=== PATIENT | male | born 1945 | race Caucasian/White ===

== ENCOUNTER → 2016-06-19 | Outpatient (CLI) | payer OTHER, MEDICARE ==
[~2016-06-19] MED LIST: AMLO-114 PO; ASPI81TA28 PO; ESCI10TA17 PO; KRIL1000 PO; MULT-506 PO; OLME40TA30 PO
== END | disposition home or self-care (01) ==
LOC: C.CPL 14:06
PROVIDERS: ATTEND Family Medicine
DX: R00.1 Bradycardia, unspecified (principal); I45.10 Unspecified right bundle-branch block; I44.4 Left anterior fascicular block

== ENCOUNTER → 2016-06-25 | Outpatient (CLI) | payer OTHER, MEDICARE | END | disposition home or self-care (01) | LOC: C.PATHSPEC 17:27 | PROVIDERS: ATTEND Plastic Surgery | DX: M75.92 Shoulder lesion, unspecified, left shoulder (principal) ==

== ENCOUNTER → 2016-07-08 | Day surgery (SDC) | payer OTHER, MEDICARE ==
[2016-06-30 10:25] VITALS: Ht 177.8 cm; Wt 97.7 kg
[~2016-07-08] VITALS: Ht 177.8 cm; Wt 97.7 kg
== END | disposition home or self-care (01) ==
LOC: EDSTATUS 09:30 → C.PAT 13:34
PROVIDERS: ATTEND Plastic Surgery
DX: C44.319 Basal cell carcinoma of skin of other parts of face (principal)

== ENCOUNTER → 2016-08-28 | Outpatient (CLI) | payer OTHER, MEDICARE ==
[2016-08-28 21:57] LABS: HEMATOCRIT 38.7 % (42-52); MEAN CELL VOLUME 87.8 fL (80-100); MEAN CORPUSCULAR HEMOGLOBIN 28.8 pg (25-34); MEAN CORPUSCULAR HGB CONC 32.8 g/dl (32-36); MEAN PLATELET VOLUME 10.6 fL (7.4-10.4); PLATELET COUNT 256 K/uL (130-400); RED BLOOD COUNT 4.41 M/uL (4.7-6.1); WHITE BLOOD COUNT 6.76 K/uL (4.8-10.8)
[2016-08-28 22:08] LABS: PARTIAL THROMBOPLASTIN RATIO 1.1; PROTHROMBIN TIME (PATIENT) 10.9 SECONDS (9.0-12.0)
--- NOTE | 2016-09-03 12:45 | CODING QUERY MEDICAL NECESSITY ---
CQSUPPORTING DIAGNOSIS NEEDED A supporting diagnosis is required for the test/procedure performed on this patient in order for us to be reimbursed by the patient's insurance. Please provide a supporting diagnosis for the following test/procedure listed below next to the test name along with your signature. *If there is no additional diagnosis for this patient that would support the following test/procedure please document that below next to the test/procedure. Test(s)/Procedure(s) that require a supporting diagnosis: DOS 08/28/16 BLOOD COUNT PROTHROMBIN TIME ORDERED BY DEZ JEAN Provider Signature: Date: Thank you Myranda Reese Health Information Management Once completed, please kindly fax back to [phone] For questions please call [phone]
== END | disposition home or self-care (01) ==
LOC: C.LAB 21:37
PROVIDERS: ATTEND Physician Assistant
DX: Z01.812 Encounter for preprocedural laboratory examination (principal); C44.310 Basal cell carcinoma of skin of unspecified parts of face

== ENCOUNTER → 2016-09-02 | Day surgery (SDC) | payer OTHER, MEDICARE ==
[2016-09-01 08:37] VITALS: Ht 177.8 cm; Wt 97.7 kg
[~2016-09-02] VITALS: Ht 177.8 cm; Wt 97.7 kg
[~2016-09-02] MED LIST changes: +ACETAMINOPHEN 325 MG TAB PO PRN; +ATROPINE SULFATE 0.1 MG/ML 5ML SYR IV PRN; +BACITRACIN OINT 15 GM TUBE ONE; +CEFAZOLIN 2000 MG/60 ML D5W IV SCH; +DEXAMETHASONE SOD INJ 4 MG/ML VIAL ONE; +EpHEDrine SULFATE INJ 50 MG/ML AMP IV PRN; +FENTANYL CITRATE INJ 50 MCG/1 ML 2 ML VIAL IV PRN; +FENTANYL CITRATE INJ 50 MCG/1 ML 2 ML VIAL ONE; +GENTIAN VIOLET TOP SOLN DROP CHARGE ONE; +LACTATED RINGER'S 1000ML 1,000 ML IV SCH; +LIDOCAINE HCL 2% 2 ML VIAL (20MG/ML) ONE; +LIDOCAINE/EPINEPHRINE 1% INJ 50 ML VIAL ONE; +METOCLOPRAMIDE HCL INJ 5 MG/ML 2 ML VIAL IV PRN; +MIDAZOLAM HCL 1 MG/ML 2ML VIAL ONE; +ONDANSETRON INJ 2 MG/ML 2 ML VIAL IV PRN; +ONDANSETRON INJ 2 MG/ML 2 ML VIAL ONE; +OXYCODONE/ACETAMINOPHEN 5-325 TAB PO PRN; +POVIDONE-IODINE OP SOLN 30 ML BTL ONE; +PROPOFOL IV EMULSION 10 MG/ML 20 ML VIAL IV ONE; +SODIUM CHLORIDE 0.9% 1000ML 1,000 ML IV SCH
--- NOTE | 2016-09-02 06:56 | History & Physical Bridge - [place] ---
H&P Re-Evaluation Bridge Note: I have examined the patient, reviewed the History & Physical and in the interval since the performance of the History & Physical I have noted the following changes of clinical significance: No changes noted
--- NOTE | 2016-09-02 08:15 | Discharge Instructions ---
Discharge Instructions Date of Service September 02, 2016. Admission Reason for Admission: Basal Cell Carcinoma Of Skin Of Face Discharge Discharge Diagnosis / Problem: Basal Cell Carcinoma of Face Discharge Goals Goal(s): Decrease discomfort Activity Recommendations Activity Limitations: per Instructions/Follow-up section ACTIVITY RECOMMENDATIONS: __Normal activities _x_No bending, lifting or straining __No driving __Driving allowed when you are off pain medications _x_Walking permitted __You should have help at home for ___ days DRESSINGS: __No dressings required _x_Keep dressings dry/in place until first office visit __Remove dressings ___ and leave dressings off __Apply ice ___ days __Remove dressings and reapply garment __Apply antibiotic ointment (Bacitracin, Neosporin, etc) to wounds 3-4 times/ day for 10 days BATHING: _x_Keep dressings dry _x_Sponge bathing permitted __Showering permitted _x_No swimming, hot tubs or soaking in a tub MEDICATIONS: Resume previous medications unless instructed otherwise by your surgeon. _x_Do not use aspirin, Motrin, Advil or Ibuprofen as these may promote bleeding. Please use Tylenol. _x_Prescription(s) provided:pain medication was provided at your last office visit OTHER INSTRUCTIONS: __Record drain output 2-3 times per day SPECIAL CARE INSTRUCTIONS: * It is normal to have a mild fever after surgery. If your temperature is higher than 101.5 degrees F, please call the office at [phone]. * Constipation is a typical side effect of pain medication. An over-the- counter stool softener will help relieve this. * Leaking around surgical drains may occur and should not cause concern. Sometimes these drains become clogged. If this happens, remove the bulb and milk the clot out of the tube, then replace the bulb. * Drainage from wounds after liposuction is normal and should be expected. Garments will become soiled. You should protect furniture and bedding. This drainage should mostly subside within 2-3 days. Leave garments in place unless instructed to remove them. * If you have unusual drainage from a wound or are concerned you have an infection or have any questions or concerns, please call the office at [phone]. FOLLOW UP VISIT: If not already scheduled, please call the office, , when you return home after surgery to schedule an appointment to be seen in __2_ days. . Current Hospital Diet Patient's current hospital diet: Discharge Diet Recommended Diet: Regular Diet Procedures Procedures Performed: Right Cheek Basal Cell Carcinoma Excision With Frozen Section And Flap Closure Pending Studies Studies pending at discharge: yes List of pending studies: pathology Medical Emergencies . Who to Call and When: Medical Emergencies: If at any time you feel your situation is an emergency, please call 911 immediately. . Non-Emergent Contact Non-Emergency issues call your: Primary Care Provider, Surgeon . "Provider Documentation" section prepared by Kristine Murray. . VTE Core Measure Inpt VTE Proph given/why not?: SCD's [place] Drug Monitoring Program Search Results: no issues identified
--- NOTE | 2016-09-02 08:26 | [facility] Post Operative Brief Note ---
Immediate Operative Summary Operative Date September 02, 2016. Pre-Operative Diagnosis Basal Cell Carcinoma Right Cheek Post-Operative Diagnosis Same Procedure(s) Performed Right Cheek Basal Cell Carcinoma Excision With Frozen Section And Flap Closure Surgeon Dr. Cowan Under Trimmer Surgeon(s) None Estimated Blood Loss 2 mL Findings no residual basal cell; foreign body giant cell reaction noted on frozen Specimens A. Basal Cell Carcinoma Right Cheek - Suture at 12 O'Clock; Sent for Frozen Section Anesthesia local with sedation Complication(s) None Disposition Recovery Room / PACU
[2016-09-02 08:31] VITALS: TEMP 36
[2016-09-02 09:00] VITALS: BP 160/87; PULSE 51; O2SAT 95
--- NOTE | 2016-09-02 09:11 | Anesthesia Progress Nt - [facility] ---
Anesthesia Post Op Note Date & Time September 02, 2016 at 09:11 Vital Signs Pain Intensity: 0 Vital Signs Past 12 Hours Date Time Temp Pulse Resp B/P Pulse Ox O2 Delivery O2 Flow Rate FiO2 09/02/16 09:00 51 16 160/87 95 Room Air 09/02/16 08:31 36.0 44 14 153/67 93 Room Air 09/02/16 06:29 36.5 52 18 180/74 95 Room Air Notes Mental Status: alert / awake / arousable, participated in evaluation Pt Amnestic to Procedure: Yes Nausea / Vomiting: adequately controlled Pain: adequately controlled Airway Patency, RR, SpO2: stable & adequate BP & HR: stable & adequate Hydration State: stable & adequate Anesthetic Complications: no major complications apparent
--- NOTE | 2016-09-04 12:47 | OPERATIVE REPORT ---
DATE OF OPERATION: 09/02/2016 PREOPERATIVE DIAGNOSIS: Right cheek basal cell carcinoma. POSTOPERATIVE DIAGNOSIS: Same. PROCEDURE: Excision basal cell carcinoma right cheek with V-Y advancement flap closure. SURGEON: Dr. Iman Cowan. ANESTHESIA: Local with sedation. COMPLICATIONS: None. 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 This was biopsy proven and there still noted to be some residual lesion. So, he presented to me for excision. Due to the location at the right lid cheek junction, I felt it would be most prudent to proceed with excision with frozen section. Unfortunately, I evaluated him in June and due to some cardiac concerns and further workup which was needed, he was unable to have the procedure performed until now. BRIEF DESCRIPTION OF THE PROCEDURE: Risks, benefits, and alternatives of the procedure were explained to the patient, who agreed and signed consent. He was identified and marked in the preoperative holding area. He was brought to the operating room, where he was positioned supine and placed under sedation without incident. Surgical site was prepped and draped sterilely. A time-out procedure was performed. The right cheek at the inferior most aspect of the eyelid had a healing shave biopsy site as well as a small nodule area adjacent. There was some peripheral erythema as well. The area was marked for excision and the maximal excision diameter including the lesion and periphery of normal appearing skin was 1.5 cm. A 1% lidocaine with epinephrine was used to anesthetize the area. A 15-blade scalpel was used to make the circular skin incision surrounding the lesion. The lesion was removed with some underlying subcutaneous fat. A suture marked at 12 o'clock and the lesion was sent for frozen section. Frozen section report showed no residual basal cell carcinoma; however, there was foreign body giant cell reaction present. Hemostasis was achieved with electrocautery. Due to the location, I had concerns about attempting primary closure due to risk of ectropion. Therefore, I performed a V-Y advancement flap from the lateral aspect of the cheek. This area was anesthetized with 1% lidocaine with epinephrine. With a 15 blade scalpel, I made the triangular incision. Undermining was performed until such time the flap could be able to be advanced into the defect. It was inset using 5-0 Vicryl interrupted sutures. Donor site was closed using 5-0 interrupted Vicryl dermal sutures. Skin was reapproximated using 6-0 Prolene interrupted skin sutures. At the closure of the case, there was no evidence for ectropion. Flap was pink and viable. Antibiotic ointment and a dressing were applied. The patient was awakened and transferred to recovery in satisfactory condition. This flap closure presented a surface area of less than 10 square cm. I attest to the content of the Intraoperative Record and any orders documented therein. Any exceptions are noted below. MTDD
== END | disposition home or self-care (01) ==
LOC: X.SURG 06:16
PROVIDERS: ATTEND Plastic Surgery
DX: C44.319 Basal cell carcinoma of skin of other parts of face (principal); I10 Essential (primary) hypertension; Z79.82 Long term (current) use of aspirin; Z82.49 Family history of ischemic heart disease and other diseases of the circulatory system

== ENCOUNTER 2024-05-07 11:48 | Inpatient (IN) ==
--- OUTSIDE RECORDS SUMMARY | 2024-05-07 11:55 | External Medical Summary | Continuity of Care Document ---
Author Name Unknown Organization [address] Address [address] [place] [id number] Care Team Providers Care Channel Lip Wetter Name Role Phone Mannie Ayala Primary Care Physician [phone] [id number] Date(s): 03/09/24 - 03/09/24 [facility] [address], [address] [place] [address] [phone] Encounter Diagnosis Bradycardia(Discharge Diagnosis) - 03/09/24 CAD in [place] artery(Discharge Diagnosis) - 03/09/24 RBBB with left anterior fascicular block(Discharge Diagnosis) - 03/09/24 Hyperlipidemia(Discharge Diagnosis) - 03/09/24 Benign essential HTN(Discharge Diagnosis) - 03/09/24 Essential (primary) hypertension(Final) - Bradycardia, unspecified(Final) - Atherosclerotic heart disease of [place] coronary artery without angina pectoris (Final) - Hyperlipidemia, unspecified(Final) - Bifascicular block(Final) - Discharge Disposition: Home or Self Care Attending Physician: DO Epps Jason D Allergies, Adverse Reactions, Alerts No Known Allergies Assessment and Plan Extracted from: Title:Cardiology Office Visit Note Author:DO Epps Jason D Date:03/09/24 1.Benign essential HTN 2.Bradycardia 3.CAD in [place] artery 4.Hyperlipidemia 5.RBBB with left anterior fascicular block From my standpoint he is doing really well. I think his fatigue in the afternoon is likely related to hypotension. We suggested moving his Procardia XL to at night and leaving his isosorbide and losartan to the morning. Hopefully this improves his symptoms. Will continue her cardiac rehab. They note that he can reset the clock for his 36 sessions as he started before his angioplasty and stenting. Regards to his LAD lesion he seems asymptomatic and therefore we will continue with medical therapy. If he noted progressive anginal symptoms that is not improving with medical therapy then we can revisit angioplasty and stenting of the LAD. He denies any falls or syncopal episodes. He does need a lipid profile and a complete metabolic profile. I would try to drive his LDL under 70 if not closer to 60. He is tolerating his current dose of atorvastatin without myalgias or arthralgias. Given his anxiety I doubled his Lexapro to 20 mg and noted I would document this in my note for you. Additionally I wonder if he might not benefit from some hydroxyzine as needed for his anxiety. I will see him back in 4 months. Sooner if there are any issues. Immunizations Given and Recorded Vaccine Date Status Refusal Reason influenza virus vaccine, inactivated 04/15/23 Give n influenza virus vaccine, inactivated 1 03/21/21 Gi eric influenza virus vaccine, inactivated 05/11/19 Give n influenza virus vaccine, inactivated 03/22/18 Give n SARS-CoV-2 mRNA (Pfizer 12+) bivalent 05/16/21 Rec orded SARS-CoV-2 (COVID-19) mRNA BNT-162b2 vax 2 05/16/21 Recorded SARS-CoV-2 (COVID-19) mRNA BNT-162b2 vax 3 06/27/20 Recorded SARS-CoV-2 (COVID-19) mRNA BNT-162b2 vax 4 06/06/20 Recorded pneumococcal 13-valent vaccine 03/09/17 Recorded pneumococcal 13-valent vaccine 5 02/13/16 Recorded pneumococcal 23-valent vaccine 02/07/16 Recorded 1Result Comment: Verified by Kevin Parra LPN 2Result Comment: doesn't recall this one 3Result Comment: 2021-06-18: Historical information-source unspecified 4Result Comment: 2021-06-18: Historical information-source unspecified 5Result Comment: 2019-05-11: Historical information-source unspecified Medications aspirin 81 mg oral capsule Start: 01/14/24 1:10:00 PM EDT, 1 cap, PO, q24h, Disp# 90 cap, Refills: 3, other Start Date: 01/14/24 Status: Ordered atorvastatin 20 mg oral tablet Start: 02/08/24 8:09:00 AM EDT, 1 tab, PO, qhs Start Date: 02/08/24 Status: Ordered escitalopram 20 mg oral tablet Start: 03/09/24 10:52:00 AM EST, 1 tab, PO, Daily, Disp# 90 tab, Refills: 3, Pharmacy: [facility] Start Date: 03/09/24 Status: Ordered Fish Oil 500 mg oral capsule Start: 03/28/19 1:16:00 PM EST, 1,250 mg =, PO, Daily Start Date: 03/28/19 Status: Ordered inhaler spacer Start: 07/04/22 4:30:00 PM EST, See Instructions, Disp# 1 each, Refills: 2, to be used with albuterolinhaler, Pharmacy: [facility] 20[facility] Start Date: 07/04/22 Status: Ordered isosorbide mononitrate 30 mg oral tablet, extended release Start: 12/14/23 10:19:00 AM EDT, 1 tab, PO, qAM Start Date: 12/14/23 Status: Ordered multivitamin Start: 06/27/22 1:17:00 PM EST, 1 tab, PO, Daily Start Date: 06/27/22 Status: Ordered NIFEdipine (Eqv-Adalat CC) 60 mg oral tablet, extended release Start: 12/28/23 9:25:00 AM EDT, 1 tab, PO, Daily, Disp# 90 tab, Refills: 3, Pharmacy: [facility] 20[facility] Start Date: 12/28/23 Status: Ordered nitroglycerin 0.4 mg sublingual tablet Start: 02/08/24 11:43:00 AM EDT, 1 tab, SL, q5min, Disp# 25 tab, Refills: 1, not to exceed 3 doses/15 min--if pain persists, seek medical attention must be dispensed & stored in original containers, PRN: as needed for chest pain, Pharmacy: [facility] [place] Start Date: 02/08/24 Status: Ordered olmesartan 40 mg oral tablet Start: 09/07/23 9:40:00 AM EDT, See Instructions, Disp# 90 tab, Refills: 3, TAKE 1 TABLET BY MOUTH EVERY DAY, Pharmacy: [facility] [address] Start Date: 09/07/23 Status: Ordered Plavix 75 mg oral tablet Start: 02/08/24 11:43:00 AM EDT, 1 tab, PO, Daily, Disp# 30 tab, Refills: 5, DO NOT STOP this unlessdirected by Cardiology, Pharmacy: [facility] [place] Start Date: 02/08/24 Status: Ordered PreserVision oral tablet Start: 08/13/18 2:57:00 PM EDT, 1 tab, PO, Daily Start Date: 08/13/18 Status: Ordered Vitamin D3 5000 intl units (125 mcg) oral tablet Start: 09/30/19 2:32:00 PM EDT, 1 tab, PO, Daily Start Date: 09/30/19 Status: Ordered Voltaren 1% topical gel Start: 12/09/19 12:11:00 PM EDT, 1 appl, topical, qid, Disp# 300 g, Refills: 3, PRN: Pain, Pharmacy: [id number] Start Date: 12/09/19 Status: Ordered Mental Status 03/09/24 Barriers to Learning one year None evide nt Mandatory Health Literacy Documentation Yes Health Literacy Communication Barriers N ever Primary Language Tajik Problem List Condition Confirmation Course Effective Dates Status H ealth Status Informant Thoracic aortic aneurysm Confirmed Active Benign essential HTN Confirmed Active CAD in [place] artery Confirmed Active Diverticulosis Confirmed Active Dizziness Confirmed Active Dyspnea Confirmed Active Fatigue Confirmed Active Status post ORIF of fracture of ankle Confirmed Active Bradycardia Confirmed Active Hyperlipidemia Confirmed Active Nephrolithiasis Confirmed Active COPD, mild Confirmed Active Mild depression Confirmed Active Osteoarthritis of right knee Confirmed Active RBBB with left anterior fascicular block Confirmed Active Sleep apnea Confirmed Active Diagnosis Diagnosis Type Effective Dates Health Status Clinical Service Informant CAD in [place] artery Discharge Diagnosis 03/09/24 RBBB with left anterior fascicular block Discharge Diagnosis 03/09/24 Benign essential HTN Discharge Diagnosis 03/09/24 Bradycardia Discharge Diagnosis 03/09/24 Hyperlipidemia Discharge Diagnosis 03/09/24 Procedures Procedure Date Related Diagnosis Body Site Status Colonoscopy 1 01/31/[address] of abdomen and pelvis 2 12/14/20 Completed Open reduction of fracture o f ankle with internal fixation 08/21/14 Completed Tonsillectomy Completed 1Impression: Diverticulosis in the sigmoid colon. Non-bleeding internal hemorrhoids. [facility] specimens [facility]: 1. Obstructing 1.8 left renal calculus with moderate severe hydronephrosis Results Laboratory List Name Date Comprehensive Metabolic Panel (COMP META B PANEL) 03/09/24 Lipid Profile (LIPOPROTEINS) 03/09/24 Most recent to oldest [Reference Range]: 1 eGFR CKD-EPI [>60 mL/min/1.73 m2] 90 mL/ min/1.73 m2 1 (03/09/24 11:07 AM) Non-HDL 89 mg/dL 2 (03/09/24 11:07 AM) Estimated CrCl 86.75 mL/min (03/09/24 11:41 AM) Anion Gap [5-14 mmol/L] 8 mmol/L (03/09/24 11:07 AM) Alb [3.5-5.0 g/dL] 3.9 g/dL (03/09/24 11:07 AM) Alk Phos [38-126 unit/L] 73 unit/L (03/09/24 11:07 AM) ALT [<50 unit/L] 28 unit/L (03/09/24 11:07 AM) AST [15-46 unit/L] 28 unit/L (03/09/24 11:07 AM) BUN [7-20 mg/dL] 17 mg/dL (03/09/24 11:07 AM) Ca [8.4-10.2 mg/dL] 8.8 mg/dL (03/09/24 11:07 AM) Chol/HDL 3 (03/09/24 11:07 AM) Chol [125-200 mg/dL] 133 mg/dL (03/09/24 11:07 AM) Cl- [96-107 mmol/L] 104 mmol/L (03/09/24 11:07 AM) HCO3 [22-30 mmol/L] 28 mmol/L (03/09/24 11:07 AM) Cret [0.70-1.30 mg/dL] 0.83 mg/dL (03/09/24:07 AM) Glu [74-106 mg/dL] 90 mg/dL (03/09/24 11:07 AM) HDL [>35 mg/dL] 44 mg/dL (03/09/24 11:07 AM) K [3.5-5.1 mmol/L] 4.1 mmol/L (03/09/24 11:07 AM) LDL Chol, Calculated [50-130 mg/dL] 70 m g/dL (03/09/24 11:07 AM) Na [137-145 mmol/L] 140 mmol/L (03/09/24 11:07 AM) T Bili [0.2-1.3 mg/dL] 0.5 mg/dL (03/09/24 11:07 AM) Prot [6.3-8.2 g/dL] 7.0 g/dL (03/09/24 11:07 AM) TG [<200 mg/dL] 93 mg/dL (03/09/24 11:07 AM) 1Result Comment: Testing Performed By: Dept of Pathology [facility] Arely Bradshaw, [address] [place] [address] 2Result Comment: Testing Performed By: Dept of Pathology [facility] Arely Bradshaw, [address] [place] [address] Vital Signs Most recent to oldest [Reference Range]: 1 Patient Weight 103 kg (03/09/24 10:40 AM) Heart Rate 63 bpm (03/09/24 10:40 AM) Blood Pressure 132/82mmHg (03/09/24 10:40 AM) BP Location # 1 Left Arm (03/09/24 10:40 AM) Social History Social History Type Response Tobacco Former smoker, Cigar ettes Smoking Status Never smoked cigaret mateusz Sex Male Sex Representation Male (finding) Cardiology Outpatient Note * DO Epps Jason D: PERFORM Event Display: Cardiology Outpt Note Authored Date: Primary Care Provider MD Jamie, Mannie Jacobson Chief Complaint 1 mon f/u post cardiac cath. History of Present Illness he is doing well at cardiac rehab. He feels like he is getting stronger. He has not had any anginal symptoms at rehab. He denies any palpitations or fluttering with exercise. He has no lightheadedness with exercise. He is concerned that in the afternoon he gets this. Where he just feels really tired and almost exhausted. He denies any bleeding or bruising on aspirin and Plavix. He is also noting worsening anxiety especially in the late afternoon and evening. This is also leading to him to feel itchy in addition to his anxiety. He has had no falls or syncopal episodes. His color looks significantly better compared to before his procedure. Review of Systems PAST MEDICAL HISTORY: 1. Sinus bradycardia with a right bundle branch block and a left anterior fascicular block with an appropriate heart rate response to exercise 2. Depression. 3. Obstructive sleep apnea, tolerating a CPAP. 4. Hypertension. 5. History of broken ankle, status post-surgery. 6. Mild COPD on a CT scan of his chest. 7. +stress echo for ischemia 11/2023 with ischemia and involving the distal apical schulte, HR> 85% 8. Dilated aortic root at 4.3 cm and ascending aorta at 4.4 cm. 9. Cardiac catheterization 02/2024 * Successful IVUS guided PCI of a severe RPDA stenosis (95%) with one drug-eluting stent (Dixie Goodhue 2.5 x 15 mm) post- dilated to 2.75 mm and severe OM1 stenosiswith atherectomy and two drug-eluting stents (Gary Goodhue 2.75 x 38 mm and 2.0 x 30 mm). * Residual hemodynamically significant disease of the mid LAD (iFR 0.89, AngioFFR 0.80).* Mildly elevated left sided filling pressures (LVEDP 18 mmHg) Physical Exam Vitals & Measurements HR:63(Monitored) BP:132/82 SpO2:96% WT:103.000kg(Dosing) WT:103kg EXAM: He is awake, alert, oriented x3. He is in no acute distress. He is a well-appearing male who looks his stated age. HEENT: 2+ carotid upstrokes, no evidence of carotid bruits. Jugular venous pressure appeared normal. Sclerae was anicteric. His hearing is normal. Lungs: Clear to auscultation bilaterally; no rales, rhonchi or wheezing. Heart: Regular rate and rhythm; no appreciable murmurs, rubs or gallops. Extremities: No clubbing, cyanosis or edema.Psychiatric: His affect appeared appropriate. Assessment/Plan 1.Benign essential HTN 2.Bradycardia 3.CAD in [place] artery 4.Hyperlipidemia 5.RBBB with left anterior fascicular block From my standpoint he is doing really well. I think his fatigue in the afternoon is likely related to hypotension. We suggested moving his Procardia XL to at night and leaving his isosorbide and losartan to the morning. Hopefully this improves his symptoms. Will continue her cardiac rehab. They note that he can reset the clock for his 36 sessions as he started before his angioplasty and stenting. Regards to his LAD lesion he seems asymptomatic and therefore we will continue with medical therapy. If he noted progressive anginal symptoms that is not improving with medical therapy then we can revisit angioplasty and stenting of the LAD. He denies any falls or syncopal episodes. He does need a lipid profile and a complete metabolic profile. I would try to drive his LDL under 70 if not closer to 60. He is tolerating his current dose of atorvastatin without myalgias or arthralgias. Given his anxiety I doubled his Lexapro to 20 mg and noted I would document this in my note for you. Additionally I wonder if he might not benefit from some hydroxyzine as needed for his anxiety. I will see him back in 4 months. Sooner if there are any issues. Problem List/Past Medical History Ongoing Benign essential HTN Bradycardia CAD in [place] artery COPD, mild Diverticulosis Dizziness Dyspnea Fatigue Hyperlipidemia Mild depression Nephrolithiasis Osteoarthritis of right knee RBBB with left anterior fascicular block Sleep apnea Status post ORIF of fracture of ankle Thoracic aortic aneurysm Procedure/Surgical History Colonoscopy| Service Date: 01/31/2021T of abdomen and pelvis| Service Date: 12/14/2020Open reduction of fracture of ankle with internal fixation| Service Date: 08/21/2014Tonsillectomy Medications aspirin(aspirin 81 mg oral capsule), 81 mg= 1 cap, PO, q24h, 3 refills atorvastatin(atorvastatin 20 mg oral tablet), 20 mg= 1 tab, PO, qhs cholecalciferol(Vitamin D3 5000 intl units (125 mcg) oral tablet), 5000 Int_Unit= 1 tab, PO, Daily clopidogrel(Plavix 75 mg oral tablet), 75 mg= 1 tab, PO, Daily, 5 refills diclofenac topical(Voltaren 1% topical gel), 1 appl, topical, qid, PRN, 3 refills escitalopram(escitalopram 20 mg oral tablet), 20 mg= 1 tab, PO, Daily, 3 refills inhalation accessory(inhaler spacer), See Instructions, 2 refills isosorbide mononitrate(isosorbide mononitrate 30 mg oral tablet, extended release), 30 mg= 1 tab, PO, qAM multivitamin, 1 tab, PO, Daily multivitamin with minerals(PreserVision oral tablet), 1 tab, PO, Daily NIFEdipine(NIFEdipine (Eqv-Adalat CC) 60 mg oral tablet, extended release), 60 mg= 1 tab, PO, Daily, 3 refills nitroglycerin(nitroglycerin 0.4 mg sublingual tablet), 0.4 mg= 1 tab, SL, q5min, PRN, 1 refills olmesartan(olmesartan 40 mg oral tablet), See Instructions, 3 refills omega-3 polyunsaturated fatty acids(Fish Oil 500 mg oral capsule), 1250 mg, PO, Daily Allergies NKA Social History Smoking Status Never smoked cigarettes Alcohol - Low Risk Use:Current Frequency:1-2 times per month Substance Abuse - Denies Substance Abuse Tobacco Use:Former smoker Type:Cigarettes Family History Alzheimer disease: Father. Gastrointestinal ulcer: Father. Hypertension: Mother. [place] (myocardial infarction)...: Mother. 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
--- OUTSIDE RECORDS SUMMARY | 2024-05-07 11:55 | External Medical Summary | Continuity of Care Document ---
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 We discussed that he needs to stop his Plavix for any reason (tooth extraction or colonoscopy or surgery) he needs to let us know first. His color looks dramatically better compared to when I previously saw him. His also noticed the same thing. Hopefully he will continue to improve. He is already enrolled in cardiac rehab and can continue with that. We did discuss lifting restrictions through Thursday. I will see him back in 3 weeks time. Based on that and how he is feeling we can determine whether he were going to proceed with the LAD lesion which was just barely hemodynamically significant by FFR. His EKG today is consistent with sinus rhythm and a right bundle branch block with left anterior fascicular block. The ST-T changes are slightly better compared to his EKG precath. Otherwise he seems to be doing well. Will see him back in 3 weeks. We did discuss the use of nitroglycerin as well. Immunizations Given and Recorded Vaccine Date Status [...] qhs Start Date: 02/08/24 Status: Ordered escitalopram 10 mg oral tablet Start: 12/23/23 8:33:00 AM EDT, 1 tab, PO, Daily, Disp# 90 tab, Refills: 0, Pharmacy: [id number] Start Date: 12/23/23 Status: Ordered Fish Oil 500 mg oral capsule Start: 03/28/19 1:16:00 PM EST, 1,250 mg =, PO, Daily Start Date: 03/28/19 Status: Ordered inhaler spacer Start: 07/04/22 4:30:00 PM EST, See Instructions, Disp# 1 each, Refills: 2, to be used with albuterolinhaler, Pharmacy: [facility] Start Date: 07/04/22 Status: Ordered isosorbide mononitrate 30 mg oral tablet, extended release Start: 12/14/23 10:19:00 AM EDT, 1 tab, PO, qAM Start Date: 12/14/23 Status: Ordered meloxicam 7.5 mg oral tablet Start: 09/21/23 1:32:00 PM EDT, See Instructions, Disp# 90 tab, Refills: 3, TAKE 1 TABLET BY MOUTH EVERY DAY, Pharmacy: [facility] Start Date: 09/21/23 Status: Ordered multivitamin Start: 06/27/22 1:17:00 PM EST, 1 tab, PO, Daily Start Date: 06/27/22 Status: Ordered NIFEdipine (Eqv-Adalat CC) 60 mg oral tablet, extended release Start: 12/28/23 9:25:00 AM EDT, 1 tab, PO, Daily, Disp# 90 tab, Refills: 3, Pharmacy: [facility] Start Date: 12/28/23 Status: Ordered nitroglycerin 0.4 mg sublingual tablet Start: 02/08/24 11:43:00 AM EDT, 1 tab, SL, q5min, Disp# 25 tab, Refills: 1, not to exceed 3 doses/15 min--if pain persists, seek medical attention must be dispensed & stored in original containers, PRN: as needed for chest pain, Pharmacy: [facility] Start Date: 02/08/24 Status: Ordered olmesartan 40 mg oral tablet Start: 09/07/23 9:40:00 AM EDT, See Instructions, Disp# 90 tab, Refills: 3, TAKE 1 TABLET BY MOUTH EVERY DAY, Pharmacy: [facility] Start Date: 09/07/23 Status: Ordered Plavix 75 mg oral tablet Start: 02/08/24 11:43:00 AM EDT, 1 tab, PO, Daily, Disp# 30 tab, Refills: 5, DO NOT STOP this unlessdirected by Cardiology, Pharmacy: [facility] Start Date: 02/08/24 Status: Ordered PreserVision oral [...] [id number] Start Date: 12/09/19 Status: Ordered Problem List Condition Confirmation Course Effective Dates Status H ealth Status Informant Thoracic aortic aneurysm Confirmed Active Benign essential HTN Confirmed Active CAD in [place] artery Confirmed Active Diverticulosis Confirmed Active Dizziness [...] Effective Dates Health Status Clinical Service Informant Hyperlipidemia Discharge Diagnosis 02/11/24 Benign essential HTN Discharge Diagnosis 02/11/24 RBBB with left anterior fascicular block Discharge Diagnosis 02/11/24 CAD in [place] artery Discharge Diagnosis 02/11/24 Procedures Procedure Date Related Diagnosis Body Site Status Colonoscopy 1 01/31/[address] of abdomen and pelvis 2 12/14/20 Completed Open reduction of fracture o f ankle with internal fixation 08/21/14 Completed Tonsillectomy Completed 1Impression: Diverticulosis in the sigmoid colon. Non-bleeding internal hemorrhoids. [facility] specimens collected. [facility]: 1. Obstructing 1.8 left renal calculus with moderate severe hydronephrosis Vital Signs Most recent to oldest [Reference Range]: 1 Patient Weight 103 kg (02/11/24 9:10 AM) Heart Rate 55 bpm (02/11/24 9:10 AM) Blood Pressure 134/72mmHg (02/11/24 9:10 AM) BP Location # 1 Right Arm (02/11/24 9:10 AM) Social History Social History Type Response Tobacco Former smoker, Cigar ettes Smoking Status Never smoked cigaret mateusz Sex Male Sex Representation Male (finding) Cardiology Outpatient Note * DO Epps Jason D: PERFORM Event Display: Cardiology Outpt Note Authored Date: [id number] Primary Care Provider MD Jamie, Mannie Jacobson Chief Complaint f/u after cath History of Present Illness His cath was on Thursday but he notes yesterday he felt better. He looks better and his color is improved. He denies any chest pain or chest pressure. He has no lightheadedness or dizziness. Hedenies any presyncope or syncope. He denies any anginal symptoms. He is having difficulty when he swallows especially meat or bread and feels like it is getting stuck on the way down. Has had no falls or syncopal episodes. Review of Systems PAST MEDICAL HISTORY: 1. [...] RPDA stenosis (95%) with one drug-eluting stent ([place] 2.5 x 15 mm) post- dilated to 2.75 mm and severe OM1 stenosiswith atherectomy and two drug-eluting stents ([place] 2.75 x 38 mm and 2.0 x 30 mm). * Residual hemodynamically significant disease of the mid LAD (iFR 0.89, AngioFFR 0.80).* Mildly elevated left sided filling pressures (LVEDP 18 mmHg). Physical Exam Vitals & Measurements HR:55(Monitored) BP:134/72 SpO2:98% WT:103.000kg(Dosing) WT:103kg EXAM: He is awake, alert, [...] or gallops. Extremities: No clubbing, cyanosis or edema. He has ecchymosis over his right wrist. He has a brisk right radial pulse and his right hand is warm to touch.Psychiatric: His affectappeared appropriate. Diagnostic Results CATH: * Successful IVUS guided PCI of a severe RPDA stenosis (95%) with one drug- eluting stent ([place] 2.5 x 15 mm) post-dilated to 2.75 mm and severe OM1 stenosis with atherotomy and two drug-eluting stents ([place] 2.75 x 38 mm and 2.0 x 30 mm). * Residual hemodynamically significant disease of the mid LAD (iFR 0.89, AngioFFR 0.80).* Mildly elevated left sided filling pressures (LVEDP 18 mmHg). Assessment/Plan 1.CAD in [place] artery 2.Hyperlipidemia 3.RBBB with left anterior fascicular block 4.Benign essential HTN We discussed the need for aspirin for life and Plavix at least for a year. We discussed that he needs to stop his Plavix for any reason (tooth extraction or colonoscopy or surgery) he needs to let us know first. His color looks dramatically better compared to when I previously saw him. His also noticed the same thing. Hopefully he will continue to improve. He is already enrolled in cardiac rehab and can continue with that. We did discuss lifting restrictions through Thursday. I will see him back in 3 weeks time. Based on that and how he is feeling we can determine whetherhe were going to proceed with the LAD lesion which was just barely hemodynamically significant by FFR. His EKG today is consistent with sinus rhythm and a right bundle branch block with left anterior fascicular block. The ST-T changes are slightly better compared to his EKG precath. Otherwise he seems to be doing well. Will see him back in 3 weeks. We did discuss the use ofnitroglycerin as well. Problem List/Past Medical History Ongoing Benign essential HTN Bradycardia CAD in [place] artery COPD, mild Diverticulosis Dizziness Dyspnea Fatigue [...] appl, topical, qid, PRN, 3 refills escitalopram(escitalopram 10 mg oral tablet), 1 tab, PO, Daily inhalation accessory(inhaler spacer), See Instructions, 2 refills isosorbide mononitrate(isosorbide mononitrate 30 mg oral tablet, extended release), 30 mg= 1 tab, PO, qAM meloxicam(meloxicam 7.5 mg oral tablet), See Instructions, 3 refills multivitamin, 1 tab, PO, Daily multivitamin with [...] disease: Father. Gastrointestinal ulcer: Father. Hypertension: Mother. [place] (myocardial infarction)...: Mother. 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
--- OUTSIDE RECORDS SUMMARY | 2024-05-07 11:55 | External Medical Summary | Continuity of Care Document ---
Author Name Unknown Organization [address] Address [address] [place] [id number] Care Team Providers Care Time Study Analyst Name Role Phone Mannie Ayala Primary Care Physician [phone] [id number] Date(s): 04/22/24 - 04/22/[address], [facility] [address] [place] [address] [place] [phone] Encounter Diagnosis COPD, mild(Discharge Diagnosis) - 04/22/24 Mild depression(Discharge Diagnosis) - 04/22/24 Thoracic aortic aneurysm(Discharge Diagnosis) - 04/22/24 Benign essential HTN(Discharge Diagnosis) - 04/22/24 CAD in [place] artery(Discharge Diagnosis) - 04/22/24 Osteoarthritis of right knee(Discharge Diagnosis) - 04/22/24 Discharge Disposition: Home or Self Care Attending Physician: MD Ayala Ravishankar E Referring Physician: MD Ayala Ravishankar E Allergies, Adverse Reactions, Alerts No Known Allergies Assessment and Plan Extracted from: Title:Office Visit Note Author:MD Ayala Ravishan kar E Date:04/22/24 1.COPD, mild - Chronic/stable; not currently requiring treatment beyond prn albuterol 2.Mild depression - Lexapro increased to 20mg at last visit with Cardiology - Doing much better, can request refills when needed 3.Thoracic aortic aneurysm - Stable/monitored by cardiology 4.Benign essential HTN - Stable/controlled on current regimen - Continue as prescribed - Follows with Cardiology 5.CAD in [place] artery - Management per cardiology, statin changed at last visit - Continue as prescribed 6.Osteoarthritis of right knee - Discussed repeat injection but will defer for now - Can call to get scheduled in 1-2 months if symptoms worsen f/u 6 months. Time: 40mins 5 - pre-visit chart review 30 - visit, inclusive of history, exam, and discussion of assessment/plan 5 - post-visit documentation/orders/coordination of care Immunizations Given and Recorded Vaccine Date Status Refusal Reason influenza virus vaccine, inactivated 04/20/24 Jann rded influenza virus vaccine, inactivated 04/15/23 Give n [...] 3, other Start Date: 01/14/24 Status: Ordered escitalopram 20 mg oral tablet Start: 04/22/24 2:00:00 PM EST, 1 tab, PO, Daily Start Date: 04/22/24 Status: Ordered Fish Oil 500 mg oral capsule Start: 03/28/19 1:16:00 PM EST, 1,250 mg =, PO, Daily Start Date: 03/28/19 Status: Ordered inhaler spacer Start: 07/04/22 4:30:00 PM EST, See Instructions, Disp# 1 each, Refills: 2, to be used with albuterolinhaler, Pharmacy: [facility] Start Date: 07/04/22 Status: Ordered [...] Daily, Disp# 90 tab, Refills: 3, Pharmacy: [facility] Start Date: 12/28/23 Status: Ordered nitroglycerin 0.4 mg sublingual tablet Start: 02/08/24 11:43:00 AM EDT, 1 tab, SL, q5min, Disp# 25 tab, Refills: 1, not to exceed 3 doses/15 min--if pain persists, seek medical attention must be dispensed & stored in original containers, PRN: as needed for chest pain, Pharmacy: [facility] Start Date: 02/08/24 Status: Ordered olmesartan 40 mg oral tablet Start: 09/07/23 9:40:00 AM EDT, See Instructions, Disp# 90 tab, Refills: 3, TAKE 1 TABLET BY MOUTH EVERY DAY, Pharmacy: [facility] Start Date: 09/07/23 Status: Ordered Plavix 75 mg oral tablet Start: 02/08/24 11:43:00 AM EDT, 1 tab, PO, Daily, Disp# 30 tab, Refills: 5, DO NOT STOP this unlessdirected by Cardiology, Pharmacy: [facility] Start Date: 02/08/24 Status: Ordered PreserVision oral tablet Start: 08/13/18 2:57:00 PM EDT, 1 tab, PO, Daily Start Date: 08/13/18 Status: Ordered rosuvastatin 20 mg oral tablet Start: 03/14/24 11:16:00 AM EST, 1 tab, PO, Daily, Disp# 90 tab, Refills: 3, Pharmacy: [facility] Start Date: 03/14/24 Status: Ordered Vitamin D3 5000 intl units (125 mcg) oral tablet Start: 09/30/19 2:32:00 PM EDT, 1 tab, PO, Daily Start Date: 09/30/19 Status: Ordered Voltaren 1% topical gel Start: 12/09/19 12:11:00 PM EDT, 1 appl, topical, qid, Disp# 300 g, Refills: 3, PRN: Pain, [facility]acy: [id number] Start Date: 12/09/19 Status: Ordered Mental Status 04/22/24 Barriers to Learning one year None evide nt Mandatory Health Literacy Documentation Yes Health Literacy Communication Barriers N ever Primary Language Peruvian Problem List Condition Confirmation Course Effective Dates Status H ealth Status Informant Thoracic aortic aneurysm Confirmed Active Benign essential HTN Confirmed Active CAD in [place] Confirmed Active Diverticulosis Confirmed Active Dizziness [...] Effective Dates Health Status Clinical Service Informant COPD, mild Discharge Diagnosis 04/22/24 Non-Specified CAD in [place] artery Discharge Diagnosis 04/22/24 Non-Specified Osteoarthritis of right knee Discharge Diagnosis 04/22/24 Non-Specified Mild depression Discharge Diagnosis 04/22/24 Non-Specified Thoracic aortic aneurysm Discharge Diagnosis 04/22/24 Non-Specified Benign essential HTN Discharge Diagnosis 04/22/24 Non-Specified Procedures Procedure Date Related Diagnosis Body Site Status Colonoscopy 1 01/31/[address] of abdomen and pelvis 2 12/14/20 Completed Open reduction of fracture o f ankle with internal fixation 08/21/14 Completed Tonsillectomy Completed 1Impression: Diverticulosis in the sigmoid colon. Non-bleeding internal hemorrhoids. No specimens collected. [facility]: 1. Obstructing 1.8 left renal calculus with moderate severe hydronephrosis Vital Signs Most recent to oldest [Reference Range]: 1 Patient Weight 102 kg (04/22/24 1:44 PM) Heart Rate 54 bpm (04/22/24 1:44 PM) Respiratory Rate 20 br/min (04/22/24 1:44 PM) Blood Pressure 138/76mmHg (04/22/24 1:44 PM) Social History Social History Type Response Tobacco Former smoker, Cigar ettes Smoking Status Never smoked cigaret mateusz Sex Male Sex Representation Male (finding) [facility] Outpt Note * MD Jamie, Mannie Jacobson: PERFORM Event Display: [facility] Outpt Note Authored Date: [id number] Chief Complaint 6 mo f/u - right knee pain - had injections in the past History of Present Illness Misael is a 78yoM here today for 6m f/u from last visit. He follows concurrently with [place]. [place] and is about 2 months post cardiac cath (s/p angioplasty/stenting) now and progressing well through cardiac rehab. No recurrent anginal symptoms or arrhythmiasymptoms with exertion.He does still get some fatigue/exhaustion. Tolerating ASA/plavix well. Still feels like he hits a wall with prolonged exertion (such as shoveling snow) which is expected after this kind of procedure. At his recent cardiology visit his anxiety was flaring so lexapro was increased to 20mg. He's noticed a big improvement on this. Follows with sleep medicine for OCA on CPAP. Working well for him. Knee OA seems to be flaring up again. Last injection in September worked really well but now he's having more issues with stairs in particularly. Review of Systems 02/14pt ROS reviewed/negative except as noted in HPI. Physical Exam Vitals & Measurements HR:54(Monitored) RR:20 BP:138/76 SpO2:96% WT:102.000kg(Dosing) WT:102kg PHQ2 Data(Data Documented on:04/22/2024 13:42) Emotional health assessment NEGATIVE GENERAL APPEARANCE: The patient is alert, oriented and in no acute distress. VITALS: As above. HEENT: Head is normocephalic/atraumatic. CARDIOVASCULAR: +2 radialpulses. LUNGS: Respirations even and unlabored. EXTREMITIES: No cyanosis, clubbing or edema. MUSCULOSKELETAL: R knee without swelling/effusion, diffuse patellofemoral pain with ROM. NEUROLOGICAL: Grossly non-focal exam. SKIN: Warm and dry without any rash Assessment/Plan 1.COPD, mild - Chronic/stable; not currently requiring treatment beyond prn albuterol 2.Mild depression - Lexapro increased to 20mg at last visit with Cardiology - Doing much better, can request refills when needed 3.Thoracic aortic aneurysm - Stable/monitored by cardiology 4.Benign essential HTN - Stable/controlled on current regimen - Continue as prescribed - Follows with Cardiology 5.CAD in [place] - Management per cardiology, statin changed at last visit - Continue as prescribed 6.Osteoarthritis of right knee - Discussed repeat injection but will defer for now - Can call to get scheduled in 1-2 months if symptoms worsen f/u 6 months. Time: 40mins 5 - pre-visit chart review 30 - visit, inclusive of history, exam, and discussion of assessment/plan 5 - post-visit documentation/orders/coordination of care Problem List/Past Medical History Ongoing Benign essential HTN Bradycardia CAD in [place] artery COPD, mild Diverticulosis Dizziness Dyspnea Fatigue [...] mg= 1 cap, PO, q24h, 3 refills cholecalciferol(Vitamin D3 5000 intl units (125 mcg) oral tablet), 5000 Int_Unit= 1 tab, PO, Daily clopidogrel(Plavix 75 mg oral tablet), 75 mg= 1 tab, PO, Daily, 5 refills diclofenac topical(Voltaren 1% topical gel), 1 appl, topical, qid, PRN, 3 refills escitalopram(escitalopram 20 mg oral tablet), 20 mg= 1 tab, PO, Daily inhalation accessory(inhaler spacer), [...] mg oral capsule), 1250 mg, PO, Daily rosuvastatin(rosuvastatin 20 mg oral tablet), 20 mg= 1 tab, PO, Daily, 3 refills Allergies NKA Social History Smoking Status Never smoked cigarettes Alcohol - Low Risk Use:Current Frequency:1-2 times per month Substance Abuse - Denies Substance Abuse Tobacco Use:Former smoker Type:Cigarettes Family History Alzheimer disease: Father. Gastrointestinal ulcer: Father. Hypertension: Mother. [place] (myocardial infarction)...: Mother. Health Status Family Member(s) Immunizations Vaccine Date Status influenza virus vaccine, inactivated 04/20/2024 Recorded influenza virus vaccine, inactivated 04/15/2023 Given SARS-CoV-2 mRNA (Pfizer 12+) bivalent 05/16/2021 Recorded influenza virus vaccine, inactivated 03/21/2021 Given Comments : Verified by Kevin Parra LPN SARS-CoV-2 (COVID-19) mRNA BNT-162b2 vax 06/27/2020 Recorded Comments : 2021-06-18: Historical information-source unspecified SARS-CoV-2 (COVID-19) mRNA BNT-162b2 vax 06/06/2020 Recorded Comments : 2021-06-18: Historical information-source unspecified influenza virus vaccine, inactivated 05/11/2019 Given influenza virus vaccine, inactivated 03/22/2018 Given pneumococcal 13-valent vaccine 03/09/2017 Recorded pneumococcal 13-valent vaccine 02/13/2016 Recorded Comments : 2019-05-11: Historical information-source unspecified pneumococcal 23-valent vaccine 02/07/2016 Recorded Recommendations Health Maintenance Pending(in the next year) OverDue Medicare Annual Wellness Visit due06/18/22and every 1year Due In Future Adult Influenza Vaccine not due until10/31/24and every 1year Satisfied(in the past 1 year) Satisfied Adult Influenza Vaccine on04/20/24.Satisfied by AAYUSH Liriano Gillian Electronic Signature on File Electronically Reviewed/Signed by: Mannie Ayala MD Author Signature Dt/Tm:04/22/2024 02:26 PM Department of Family Medicine [facility] Patient Care team information Care Team Personnel Name: Pricilla Horn Michael Position: Pharmacist Member Role: Pharmacy - Lifetime Name: JOSEPH Vanegas Lynn 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
--- NOTE | 2024-05-07 12:12 | Emergency Department Note ---
Impression & Plan Hypoxic, Elevated troponin, Infection due to human metapneumovirus (hMPV) ED Provider Note NAME: KIM WARNER AGE: 78 SEX: M : 1945 ARRIVES VIA: Walk-In INFORMANT: Patient ED PROVIDER(S): Mehran Zhu DO CHIEF COMPLAINT: Cough, congestion, fever HPI: Patient is a 78-year-old male with a past medical history of cardiomyopathy, CAD, and hypertension who presents to the ER for fever and myalgias which was present over 7 days ago. This lasted for about 2 days. He was positive for the flu. Symptoms started back up in the past 24 hours with fevers of 102. He now has a cough and congestion and a sore throat. He feels short of breath as well. Denies any belly pain, nausea, vomiting, or diarrhea. No dysuria, urgency, or frequency. ADDITIONAL HISTORY OBTAINED: Per HPI Chronic Medical/Social Conditions Affecting Care: Per HPI PAST MEDICAL HISTORY:See Below PAST SURGICAL HISTORY:See Below FAMILY HISTORY:See Below SOCIAL HISTORY:See Below HOME MEDICATIONS:See Below ALLERGIES:See Below VITALS:See Below PHYSICAL EXAMINATION: GENERAL: Sitting up in bed, alert, well appearing, well nourished, no distress, non-toxic EYE EXAM: normal conjunctiva. PERRL and EOM's grossly intact. OROPHARYNX:mucous membranes are moist NECK: supple, no nuchal rigidity, no adenopathy, non-tender LUNGS: Clear to auscultation. Normal chest wall mechanics HEART: no murmurs, S1 normal and S2 normal ABDOMEN: abdomen soft, non-tender, normo-active bowel sounds, no masses, no rebound or guarding. BACK: Back is symmetrical on inspection and there is no deformity, no midline tenderness, no CVA tenderness. SKIN: no rashes and no bruising UPPER EXTREMITIES: upper extremities are grossly normal. LOWER EXTREMITIES: No pitting edema. NEURO EXAM: Normal sensorium, cranial nerves II-XII grossly intact, normal speech, no gross weakness of arms, no gross weakness of legs. MEDICAL DECISION MAKING: Patient is a 78-year-old male who presents ER with above-stated complaint. IV was established and blood work was obtained. Labs showed a mild leukocytosis 11,000. No significant anemia. INR unremarkable. BMP with a glucose of 112. LFTs bilirubin was unremarkable. Troponin was elevated at 71. Viral panel was positive for human metapneumovirus. Chest x-ray was suggestive of a possible infiltrate and consequently the patient was given a dose of Rocephin and azithromycin. With the hypoxia he was placed on 2 L nasal cannula. He was discussed with the hospitalist for further evaluation management treatment. D- dimer was obtained by the hospitalist and CT of the chest was as well. Please see his note for further management and treatment. Consults/Care Managements Discussions: Per MDM Triage Nursing notes reviewed. Limited review of prior medical records performed Vital Signs: reviewed and remarkable for HTN Differential diagnosis: Differential diagnoses includes but is not limited to pneumonia, bronchitis, COPD/Asthma exacerbation, pneumothorax, pulmonary embolism, congestive heart failure, acute coronary syndrome ER treatment provided: See below Diagnostics interpreted by me include EKG and cardiac monitoring as listed below: -Cardiac Monitoring: An order was placed for continuous cardiac monitoring. The monitor shows a rate of 70 with sinus rhythm. -ECG: Sinus rhythm rate of 65 PACs present Right bundle branch block QTc 492 -Laboratory studies:Interpreted by me as stated above in MDM and shown below. Imaging studies: Xrays: As interpreted by me: Portable AP upright 1 view of the chest per my interpretation showed no infiltrate. X-ray of the chest per radiology suggested a subtle right-sided opacity CTs show: none Procedures:none Critical Care: I have personally spent 40 minutes of critical care time in the direct management of this patient. This includes bedside care, interpretation of diagnostic studies, and testing, discussion with consultants, patient, and family members, and other required patient management activities. This 40 minutes is in excess of all separately billable procedures. 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 Hydronephrosis, left Encounter for pre-operative examination HTN (hypertension) Medical History Thoracic aortic aneurysm without rupture History of basal cell carcinoma Osteoarthritis History of kidney stones History of GI bleed Macular degeneration of left eye Mood disorder Sleep apnea Hypertensive heart disease Surgical History History of basal cell carcinoma (BCC) excision (~2017) History of open reduction and internal fixation (ORIF) procedure History of cystoscopy History of colonoscopy History of wisdom tooth extraction History of tonsillectomy History of bilateral cataract extraction Family History Other No family history of adverse response to anesthesia Social History Smoking Status: Former smoker Tobacco Type: Cigarettes Second Hand Exposure: No; Do You Dip or Chew Tobacco: No; Hx Alcohol Use: No Hx Substance Use: No Preferred Language: Greek Communication Ability: Effective 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 Beliefs That Will Affect Care: None Current Living Situation: Spouse Feels Safe at Home: Yes Assistive Devices: None Allergies Allergies Allergy/AdvReac Type Severity Reaction Status Date / Time No Known Allergies Allergy Verified 02/12/24 14:02 Home Meds Home Medications Medication Instructions Recorded Confirmed cholecalciferol (vitamin D3) 125 125 mcg PO QAM 12/14/20 05/07/24 mcg (5,000 unit) tablet (Vitamin D3) diclofenac sodium 1 % topical gel 2 g topical DIRECTED PRN Pain 12/14/20 05/07/24 escitalopram oxalate 10 mg tablet 20 mg PO QAM 12/14/20 05/07/24 (Lexapro) nifedipine 60 mg tablet,extended 60 mg PO QAM 12/14/20 05/07/24 release 24 hr olmesartan 40 mg tablet (Benicar) 40 mg PO QAM 12/14/20 05/07/24 omega-3 fatty acids-fish oil 684 1 cap PO QAM 12/14/20 05/07/24 mg-1,200 mg capsule,delayed release multivitamin 1 tab PO DAILY 02/11/24 05/07/24 nitroglycerin 0.4 mg sublingual 0.4 mg sublingual Q5M PRN Chest 02/11/24 05/07/24 tablet Pain amoxicillin 875 mg-potassium 1 tab PO BID 05/07/24 05/07/24 clavulanate 125 mg tablet rosuvastatin 20 mg tablet 20 mg PO DAILY 05/07/24 05/07/24 vit C 250 mg-vit E 90 mg-zinc 40 1 tab PO BID 05/07/24 05/07/24 mg-copper 1 [id number] capsule (PreserVision AREDS-2) Previous Rx's Medication Instructions Recorded aspirin 81 mg capsule 81 mg PO DAILY #30 caps 12/02/23 clopidogrel 75 mg tablet (Plavix) 75 mg PO DAILY #90 tabs 03/02/24 isosorbide mononitrate 30 mg 30 mg PO DAILY #90 tabs 03/02/24 tablet,extended release 24 hr Results & Data (ED) Vital Signs Vital Signs - 24 hr 05/07/24 11:52 05/07/24 12:44 05/07/24 12:47 Temperature 37.2 C Temperature Source Temporal Artery Scan Pulse Rate 65 60 Respiratory Rate 22 Blood Pressure 182/73 H Blood Pressure Mean 109 Pulse Oximetry 91 88 L Oxygen Delivery Method Room Air Nasal Cannula Oxygen Flow Rate 0 Sepsis Recent Fever Within 48 Hours Yes Sepsis New/Unexplained Change in Mental Status N/A Sepsis Action Taken by Nursing No Action Required Fraction of Inspired Oxygen - Titration 2 Pulse Oximetry Post Tiitration 93 Laboratory Data 05/07/24 12:06 05/07/24 12:06 Lab Results 05/07/24 05/07/24 Range/Units 12:06 12:07 WBC 11.02 H (4.8-10.8) K/ul RBC 4.70 (4.70-6.10) M/uL Hgb 12.6 L (14.0-18.0) g/dl Hct 39.5 L (42.0-52.0) % MCV 84.0 (80.0-100.0) fL MCH 26.8 (25.0-34.0) pg MCHC 31.9 L (32.0-36.0) g/dL RDW Std Deviation 43.4 (36.4-46.3) fL RDW Coeff of Palak 14.2 (11.5-14.5) % Plt Count 238 (130-400) K/uL MPV 10.6 (9.4-12.4) fL Immature Gran % (Auto) 0.4 % Neut % (Auto) 85.5 % Lymph % (Auto) 6.8 % Bulloch % (Auto) 6.6 % Eos % (Auto) 0.3 % Baso % (Auto) 0.4 % Neut # (Auto) 9.43 H (1.40-6.50) K/uL Lymph # (Auto) 0.75 L (1.20-3.40) K/uL Bulloch # (Auto) 0.73 H (0.11-0.59) K/uL Eos # (Auto) 0.03 (0.00-0.50) K/uL Baso # (Auto) 0.04 (0.00-0.20) K/uL Immature Gran # (Auto) 0.04 (0.01-0.20) K/uL PT 12.0 (9.0-12.0) Seconds INR 1.1 (0.9-1.1) APTT 29 (21-31) Seconds PTT Ratio 1.1 Sodium 136 (136-145) mmol/L Potassium 3.9 (3.5-5.1) mmol/L Chloride 103 (98-107) mmol/L Carbon Dioxide 27 (21-32) mmol/L Anion Gap 6 (3-11) BUN 19 (6-23) mg/dl Creatinine 0.92 (0.6-1.4) mg/dl Est Cr Clr Drug Dosing 79.7 ml/min eGFR 85.14 BUN/Creatinine Ratio 20.7 H (10-20) Glucose 112 H (70-99(Fasting)) mg/dl Calcium 8.4 L (8.6-10.3) mg/dl Total Bilirubin 0.6 (0.2-1.0) mg/dl AST 22 (13-39) U/L ALT 21 (7-52) U/L Alkaline Phosphatase 66 (34-104) U/L Troponin I High Sens 67.6 H* (0-20) pg/ml B-Natriuretic Peptide 734 H (0-100) pg/ml Total Protein 6.8 (6.0-8.3) gm/dl Albumin 4.0 (3.4-5.0) gm/dl Globulin 2.8 (2.5-4.0) gm/dl Albumin/Globulin Ratio 1.4 (0.9-2) Adenovirus (PCR) Not Detected (NotDetected) B. pertussis DNA (PCR) Not Detected (NotDetected) B.parapertussis DNA PCR Not Detected (NotDetected) C. pneumoniae DNA (PCR) Not Detected (NotDetected) Coronavirus OC43 (PCR) Not Detected (NotDetected) Coronavirus HKU1 (PCR) Not Detected (NotDetected) Coronavirus 229E (PCR) Not Detected (NotDetected) SARS-CoV-2 (PCR) Not Detected (NotDetected) Coronavirus NL63 (PCR) Not Detected (NotDetected) Human Metapneumovir PCR DETECTED A (NotDetected) Influenza Type A (PCR) Not Detected (NotDetected) Influenza Type B (PCR) Not Detected (NotDetected) M. pneumoniae (PCR) Not Detected (NotDetected) Parainfluenza 1 (PCR) Not Detected (NotDetected) Parainfluenza 2 (PCR) Not Detected (NotDetected) Parainfluenza 3 (PCR) Not Detected (NotDetected) Parainfluenza 4 (PCR) Not Detected (NotDetected) RSV (PCR) Not Detected (NotDetected) Entero/Rhino (PCR) Not Detected (NotDetected) Administered Medications Discontinued Medications Aspirin (Aspirin Chew 324 Mg) 324 mg PO NOW STA Stop: 05/07/24 13:04 Last Admin: 05/07/24 13:19 Dose: 324 mg Documented By: NAZARIO Azithromycin (Azithromycin 250 Mg Tab) 500 mg PO NOW ONE Stop: 05/07/24 13:43 Last Admin: 05/07/24 14:21 Dose: Not Given Documented By: NAZARIO Ceftriaxone Sodium (Rocephin) 2,000 mg in 50 mls @ 100 mls/hr IV NOW STA Stop: 05/07/24 14:11 Last Infusion: 05/07/24 15:15 Dose: Infused Documented By: Admin: 05/07/24 14:35 Dose: 100 mls/hr Documented By: NAZARIO Doxycycline Hyclate 100 mg/ (Dextrose) 100 mls @ 50 mls/hr IV NOW STA Stop: 05/07/24 16:20 Last Infusion: 05/07/24 17:16 Dose: Infused Documented By: Admin: 05/07/24 15:16 Dose: 50 mls/hr Documented By: YENNY Imaging Data Radiologist's Impression: Chest X-Ray 05/07/24 11:58 XR chest 1V portable CLINICAL HISTORY: Chest pain, nonspecific COMPARISON STUDY: Chest CT September 14, 2020. FINDINGS: Elevation of the right hemidiaphragm is unchanged. There is no pneumothorax or pleural effusion. Moderate cardiomegaly is noted without evidence for pulmonary edema. Right midlung densities are noted. IMPRESSION: 1. Mild right midlung densities. These may reflect pulmonary vessels however a small focus of pneumonia could appear similar. Follow-up radiographs to ensure resolution are recommended. 2. Cardiomegaly without evidence for pulmonary edema. ACT 112: Negative or not required by law. Electronically signed by: Cheng Bah M.D. 05/07/2024 1:38 PM Discharge Plan Visit Data Chief Complaint: Shortness of Breath/Dyspnea Stated Complaint: SOB, COUGH, LOW OXYGEN ED Provider: Mehran Zhu Discharge Problem: Hypoxic, Elevated troponin, Infection due to human metapneumovirus (hMPV) Discharge Instructions Interventions: ED Discharge Assessment Last Done: 05/07/24 15:27
[2024-05-07 12:27] LABS: Basophils # (auto) 0.04 K/uL (0.00-0.20); Basophils % (auto) 0.4 %; Eosinophils # (auto) 0.03 K/uL (0.00-0.50); Eosinophils % (auto) 0.3 %; Hematocrit (blood only) 39.5 % (42.0-52.0); Hemoglobin 12.6 g/dl (14.0-18.0); Immature Granulocytes # (auto) 0.04 K/uL (0.01-0.20); Immature Granulocytes % (auto) 0.4 %; Lymphocytes # (auto) 0.75 K/uL (1.20-3.40); Lymphocytes % (auto) 6.8 %; Mean Corpuscular Hemoglobin 26.8 pg (25.0-34.0); Mean Corpuscular Hgb Conc 31.9 g/dL (32.0-36.0); Mean Platelet Volume 10.6 fL (9.4-12.4); Monocytes # (auto) 0.73 K/uL (0.11-0.59); Monocytes % (auto) 6.6 %; Neutrophils # (auto) 9.43 K/uL (1.40-6.50); Neutrophils % (auto) 85.5 %; Platelet Count 238 K/uL (130-400); RDW Coefficient of Variation 14.2 % (11.5-14.5); RDW Standard Deviation 43.4 fL (36.4-46.3); White Blood Count 11.02 K/ul (4.8-10.8)
[2024-05-07 12:42] LABS: Albumin Globulin Ratio 1.4 (0.9-2); BUN Creatinine Ratio 20.7 (10-20); Bilirubin,Total 0.6 mg/dl (0.2-1.0); Calcium 8.4 mg/dl (8.6-10.3); Creatinine Clr Calc Pharmacy 79.7 ml/min; Globulin 2.8 gm/dl (2.5-4.0); Potassium 3.9 mmol/L (3.5-5.1); Total Protein 6.8 gm/dl (6.0-8.3)
[2024-05-07 12:54] LABS: INR 1.1 (0.9-1.1); Partial Thromboplastin Ratio 1.1; Partial Thromboplastin Time 29 Seconds (21-31); Troponin I High Sensitivity 67.6 pg/ml (0-20)
[2024-05-07 13:08] LABS: Adenovirus PCR Not Detected (NotDetected); Bordetella parapertussis PCR Not Detected (NotDetected); Bordetella pertussis PCR Not Detected (NotDetected); Chlamydia pneumoniae PCR Not Detected (NotDetected); Coronavirus 229E PCR Not Detected (NotDetected); Coronavirus CoV-2 (COVID19)PCR Not Detected (NotDetected); Coronavirus HKU1 PCR Not Detected (NotDetected); Coronavirus NL63 PCR Not Detected (NotDetected); Coronavirus OC43PCR Not Detected (NotDetected); Human Metapneumovirus PCR DETECTED (NotDetected); Influenza A PCR Not Detected (NotDetected); Influenza B PCR Not Detected (NotDetected); Mycoplasma pneumoniae PCR Not Detected (NotDetected); Parainfluenza Virus 1 PCR Not Detected (NotDetected); Parainfluenza Virus 2 PCR Not Detected (NotDetected); Parainfluenza Virus 3 PCR Not Detected (NotDetected); Parainfluenza Virus 4 PCR Not Detected (NotDetected); Respiratory Syncytial VirusPCR Not Detected (NotDetected); Rhinovirus/Enterovirus PCR Not Detected (NotDetected)
[2024-05-07] MEDS: ASPIRIN CHEW 324 MG PO STA (13:19)
--- NOTE | 2024-05-07 13:40 | XRay Report ---
XR chest 1V portable CLINICAL HISTORY: Chest pain, nonspecific COMPARISON STUDY: Chest CT September 14, 2020. FINDINGS: Elevation of the right hemidiaphragm is unchanged. There is no pneumothorax or pleural effu sarath. Moderate cardiomegaly is noted without evidence for pulmonary edema. Right midlung densities ar e noted. IMPRESSION: 1. Mild right midlung densities. These may reflect pulmonary vessels however a small focus of pneumon ia could appear similar. Follow-up radiographs to ensure resolution are recommended. 2. Cardiomegaly without evidence for pulmonary edema. ACT 112: Negative or not required by law. Electronically signed by: Cheng Bah M.D. 05/07/2024 1:38 PM
--- NOTE | 2024-05-07 13:41 | History & Physical Report ---
Date of Service May 07, 2024 Assessment & Plan (1) Human metapneumovirus (hMPV) pneumonia: Plan: Soham is a 78-year-old male with PMH of HTN, GURJIT, BPH, CAD, and cardiomyopathy. He presented for productive cough, SOB at rest, fever, and myalgias that woke him from sleep on the morning of 05/07 Hypoxic at 88% on RA on arrival CXR revealed a mild right midlung density which could reflect small focus of pneumonia Mild leukocytosis at 11.02 with a neutrophilic predominance and lymphocytopenia; afebrile on arrival; not septic Human metapneumovirus (+) on admission Contact isolation precautions Supportive care Incentive spirometry, flutter valve Guaifenesin 1200 mg p.o. BID DuoNeb 3mL Q6R Supplemental oxygen as needed to maintain SpO2 >94% While suspect etiology is viral, will cover empirically with antibiotics based on CXR: Ceftriaxone 2000 mg IV q24h Doxycycline 100 mg IV q12h Given right halima-diaphragm herniation noted on CXR, will plan to obtain additional CT imaging D-dimer ordered, pending Chest CTA if D-dimer (+) Non-con chest CT if D-dimer (-) (2) Elevated troponin: Plan: Elevated troponin at 67.6 on arrival, repeat pending; trend to peak Clinically, patient is chest pain-free at time of admission Suspect demand ischemia vs elevation d/t acute viral illness Continuous telemetry monitoring (3) Sleep apnea: Plan: CPAP at bedtime May use home CPAP if brought in (4) Coronary artery disease: Plan: H/o heart stents Continue aspirin, plavix, isosorbide mononitrate, nifedipine, olmesartan, rosuvastatin Plan Disposition: Admit to [facility] telemetry Full code Heart healthy diet VTE PPx: Anticoagulation to be determined pending D-dimer History of Present Illness Chief Complaint: SOB/Dyspnea Primary Care Provider: Danay Ayala MD Soham is a pleasant 78-year-old male with PMH of HTN, GURJIT, BPH, CAD, and cardiomyopathy. He presented for acute onset of cough, myalgias, and SOB on the morning of 05/07. Patient reports that his symptoms woke him from sleep around 3 AM. He reports he was having a "stuffy" chest, and kept coughing, which kept him up. He denies any chest pain, but does report discomfort with deep breaths. SOB is both at rest and with exertion. He is also had a productive cough (yellow sputum production), and reports that he recently got over a case of the flu throughout the holidays (completed course of Tamiflu). He had been feeling much better, until this morning. No hemoptysis. No prior history of DVT/PE. Patient's (Joselin) at bedside does report he had a fever of 102 F this morning. Patient took all of his regular morning medicine today. No recent change in medications. He does not use supplemental oxygen at baseline, but does report he uses a CPAP at night. Per , his home pulse oximeter read 86 to 87% on room air this morning, so they decided to come to the hospital. He denies smoking, tobacco use, or recent alcohol use. NKDA; he denies any allergies to penicillin. Patient is hypertensive at 182/73 and hypoxic at 88% on RA on admission. ED Course: Aspirin 324 mg p.o. ROS: Patient endorses fever, chills, night-sweats, lightheadedness/dizziness with standing this morning, BARONE, SOB at rest and with exertion, productive cough (yellow sputum production), and discomfort with deep breaths. Patient denies chest pain, chest palpitations, pleuritic CP, hemoptysis, abdominal pain, N/V/D, changes in urinary/bowel habits, or numbness/tingling in the arms or legs. Allergies Allergy/AdvReac Type Severity Reaction Status Date / Time No Known Allergies Allergy Verified 02/12/24 14:02 Home Medications Medication Instructions Recorded Confirmed Type cholecalciferol (vitamin D3) 125 125 mcg PO QAM 12/14/20 05/07/24 History mcg (5,000 unit) tablet (Vitamin D3) diclofenac sodium 1 % topical gel 2 g topical DIRECTED PRN Pain 12/14/20 05/07/24 History escitalopram oxalate 10 mg tablet 20 mg PO QAM 12/14/20 05/07/24 History (Lexapro) nifedipine 60 mg tablet,extended 60 mg PO QAM 12/14/20 05/07/24 History release 24 hr olmesartan 40 mg tablet (Benicar) 40 mg PO QAM 12/14/20 05/07/24 History omega-3 fatty acids-fish oil 684 1 cap PO QAM 12/14/20 05/07/24 History mg-1,200 mg capsule,delayed release aspirin 81 mg capsule 81 mg PO DAILY #30 caps 12/02/23 05/07/24 Rx multivitamin 1 tab PO DAILY 02/11/24 05/07/24 History nitroglycerin 0.4 mg sublingual 0.4 mg sublingual Q5M PRN Chest 02/11/24 05/07/24 History tablet Pain clopidogrel 75 mg tablet (Plavix) 75 mg PO DAILY #90 tabs 03/02/24 05/07/24 Rx isosorbide mononitrate 30 mg 30 mg PO DAILY #90 tabs 03/02/24 05/07/24 Rx tablet,extended release 24 hr amoxicillin 875 mg-potassium 1 tab PO BID 05/07/24 05/07/24 History clavulanate 125 mg tablet rosuvastatin 20 mg tablet 20 mg PO DAILY 05/07/24 05/07/24 History vit C 250 mg-vit E 90 mg-zinc 40 1 tab PO BID 05/07/24 05/07/24 History mg-copper 1 [id number] capsule (PreserVision AREDS-2) Past Med/Surg History Problem List (Updated 05/07/24 @ 14:28 by Ignacio Grimes PA-C) Sleep apnea cpap Elevated troponin Human metapneumovirus (hMPV) pneumonia Cardiomyopathy Coronary artery disease Complex sleep apnea syndrome Dyspnea Obstructive sleep apnea Benign localized prostatic hyperplasia with lower urinary tract symptoms (LUTS) Colon cancer screening Encounter for pre-operative examination Organic sleep apnea Obstructive Bilateral nephrolithiasis 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 Hydronephrosis, left Encounter for pre-operative examination HTN (hypertension) Medical History Thoracic aortic aneurysm without rupture History of basal cell carcinoma Osteoarthritis History of kidney stones History of GI bleed Macular degeneration of left eye Mood disorder Sleep apnea Hypertensive heart disease Surgical History History of basal cell carcinoma (BCC) excision (~2017) History of open reduction and internal fixation (ORIF) procedure History of cystoscopy History of colonoscopy History of wisdom tooth extraction History of tonsillectomy History of bilateral cataract extraction Family History Other No family history of adverse response to anesthesia Social History Smoking Status: Former smoker Tobacco Type: Cigarettes Second Hand Exposure: No; Do You Dip or Chew Tobacco: No; Hx Alcohol Use: No Hx Substance Use: No Preferred Language: Syriac Communication Ability: Effective Crew Boss Required: No Beliefs That Will Affect Care: None Current Living Situation: Spouse Feels Safe at Home: Yes Assistive Devices: None Physical Exam Physical Exam: General: no acute distress; pleasant affect; at bedside; non-toxic appearing; well-nourished; cooperative; SpO2 93% on 2L NC HEENT: normocephalic, atraumatic; no scleral icterus; PERRLA w/ EOMs intact; vision and hearing grossly intact Neck: supple; no lymphadenopathy; trachea midline Skin: warm, dry without signs of tenting; no cyanosis; no rashes, bruising, lesions, or erythema noted CV: chest wall NTP; RR, bradycardic around 58 bpm; S1/S2 normal; no murmurs/rubs/gallops; pulses intact and symmetric at radial, DP, and PT Lungs: no acute respiratory distress; symmetrical chest wall expansion; mild expiratory wheeze auscultated in the lower lung st[place] bilaterally ABD: Soft, NTP; BS present; no rebound/guarding; no distention MSK: no tics or fasciculations; no edema noted in the LEs b/l, nonerythematous Neuro: A&Ox3; normal mood and affect; fluent speech; no focal deficits; sensation grossly intact in the LEs b/l Results & Data Results & Data Vital Signs (Past 12 Hours) Vital Signs Temp Pulse Resp BP Pulse Ox O2 Del Method O2 Flow Rate 05/07/24 12:47 60 05/07/24 12:44 88 L Nasal Cannula 0 05/07/24 11:52 37.2 C 65 22 182/73 H 91 Room Air Laboratory Results Abnormal lab results 05/07/24 05/07/24 Range/Units 12:06 12:07 WBC 11.02 H (4.8-10.8) K/ul Hgb 12.6 L (14.0-18.0) g/dl Hct 39.5 L (42.0-52.0) % MCHC 31.9 L (32.0-36.0) g/dL Neut # (Auto) 9.43 H (1.40-6.50) K/uL Lymph # (Auto) 0.75 L (1.20-3.40) K/uL [place] # (Auto) 0.73 H (0.11-0.59) K/uL BUN/Creatinine Ratio 20.7 H (10-20) Glucose 112 H (70-99(Fasting)) mg/dl Calcium 8.4 L (8.6-10.3) mg/dl Troponin I High Sens 67.6 H* (0-20) pg/ml B-Natriuretic Peptide 734 H (0-100) pg/ml Human Metapneumovir PCR DETECTED A (NotDetected) Diagnostic Findings Chest X-Ray 05/07/24 11:58 XR chest 1V portable CLINICAL HISTORY: Chest pain, nonspecific COMPARISON STUDY: Chest CT September 14, 2020. FINDINGS: Elevation of the right hemidiaphragm is unchanged. There is no pneumothorax or pleural effusion. Moderate cardiomegaly is noted without evidence for pulmonary edema. Right midlung densities are noted. IMPRESSION: 1. Mild right midlung densities. These may reflect pulmonary vessels however a small focus of pneumonia could appear similar. Follow-up radiographs to ensure resolution are recommended. 2. Cardiomegaly without evidence for pulmonary edema. ACT 112: Negative or not required by law. Electronically signed by: Cheng Bah M.D. 05/07/2024 1:38 PM ECG Additional Comments: EKG on arrival revealed sinus rhythm with PACs at 65 bpm; QTc 492 EKG revealed sinus bradycardia with sinus arrhythmia at 58 bpm; QTc 5.35 (caution use of QT prolonging agents) Code Status & VTE Plan Code Status Full code VTE Prophylaxis Plan VTE Prophylaxis will be ordered: Yes Supervising Physician Co-Signing Physician Notes I have personally seen, evaluated and examined the patient. I have also personally discussed the management of the patient with the resident physician/GÓMEZ and I agree with the exam findings documented in the history and physical examination and the documented assessment and plan unless otherwise stated below. Brief Exam: In general very pleasant 78-year-old male was accompanied by his for 55 years at the time of my examination. He reports he is retired from [employer] last worked there for decades. He also served 8 years in [employer]. He quit smoking greater than 35 years ago. Did smoke wh en he was a younger man and in the [place]. The patient did malick permission for his to be present during interview and exam and in addition patient and did malick permission to speak with their son-in-law who is one of our physician colleagues here, Mehran. We did discuss with Mehran about the case in depth. The tentative plan of care and the plan for CAT scan later today repeat troponins antibiotic therapy excetra. All questions were answered to both the patient and and the son-in-law's satisfaction. HEENT: Normocephalic atraumatic. Heart: Regular rate and rhythm I do not appreciate any lillian murmur or ectopy or rub. Lungs: Coarse bilaterally with bilateral rhonchi and some mild bilateral expiratory wheezing. Abdomen: Protuberant soft nontender. Positive bowel sounds. No appreciable organomegaly but exam is somewhat limited due to body habitus. Extremities: Intact with no significant edema. Neurologically: Alert and oriented x 3 no focal deficit. Much more comfortable on his current oxygen therapy. Assessment/plan: As described above. Antibiotic therapy in the form of doxycycline and Rocephin. Azithromycin was held off due to mildly prolonged QT interval. Sputum cultures. As needed nebulizer treatments. Serial troponins. If troponins trend upward will consider repeat echocardiogram and certainly entertain cardiology consultation. D-dimer is pending. If positive CTA. If negative CT of the chest. Please refer to orders for further planning. PG Care Time/CCT Total # of Minutes Spent Total Time Spent with Patient: Total time spent is greater than 50% in coordination of care (as documented) at patient's floor/unit and/or counseling patient: Coding [place] [address] INT INP/OBS CARE 3/75MIN Patient Type Established Medical Decision Making High Complexity Diagnoses Human metapneumovirus (hMPV) pneumonia J12.3 Elevated troponin R79.89 Sleep apnea G47.30 Coronary artery disease I25.10
[2024-05-07] MEDS: AZITHROMYCIN 250 MG TAB PO ONE (14:21)
[2024-05-07] MEDS: cefTRIAXone SODIUM 2,000 MG/50 ML BAG IV STA (14:35)
[2024-05-07] MEDS: DOXYCYCLINE HYCLATE 100 MG in DEXTROSE 5% MINI-B 100 ML IV STA (15:16)
[2024-05-07 15:20] LABS: D Dimer 360 ug/L FEU (0-500)
--- NOTE | 2024-05-07 16:11 | CT Scan Report ---
CT chest without contrast History: Chest pain Comparison: 09/14/2020 Technique: Helical CT imaging of the chest performed without IV contrast Dose reduction techniques were achieved by using automatic exposure control and/or adjustment of mA and/or kV according to patient size and/or use of iterative reconstruction technique. Findings: There is a focal segmental region of solid nodularity with surrounding confluent groundglass in the posterior right upper lobe. There is mild streaky bibasilar atelectasis, as well as a confluent area of atelectasis involving the medial left lower lobe. No pleural effusion. No pneumothorax. Heart size is enlarged. There are heavy coronary calcifications. The pulmonary artery is enlarged suggesting pulmonary hypertension. The thoracic aorta is normal in size. No significant pericardial effusion. No suspicious lymphadenopathy in the chest. Shotty appearing, mildly prominent mediastinal lymph nodes, are likely reactive. The central airway is clear. Limited visualized upper abdomen. No acute bony abnormalities. Impression: Focal segmental area of nodularity as well as confluent groundglass within the posterior right upper lobe, compatible with infection. Bibasilar atelectasis. Enlarged heart and pulmonary artery. Heavy coronary calcifications. Electronically signed by Dread Mcadams 05-07-2024 4:11 PM
[2024-05-07] MEDS ORDERED: ALBUT/IPRATROP 3MG/0.5MG NEB 3 ML VIAL NEB PRN (16:33)
[2024-05-07] MEDS ORDERED: ACETAMINOPHEN 325 MG TAB PO PRN (16:33)
[2024-05-07] MEDS: guaiFENesin 600 MG TABCR PO SCH (20:27)
[2024-05-07] MEDS: ACETAMINOPHEN 500 MG TAB PO ONE (20:27)
[2024-05-08] MEDS: DOXYCYCLINE HYCLATE 100 MG in DEXTROSE 5% MINI-B 100 ML IV SCH (03:07)
[2024-05-08 06:36] LABS: Basophils # (auto) 0.02 K/uL (0.00-0.20); Basophils % (auto) 0.3 %; Eosinophils # (auto) 0.33 K/uL (0.00-0.50); Eosinophils % (auto) 4.2 %; Hematocrit (blood only) 35.5 % (42.0-52.0); Hemoglobin 11.3 g/dl (14.0-18.0); Immature Granulocytes # (auto) 0.04 K/uL (0.01-0.20); Immature Granulocytes % (auto) 0.5 %; Lymphocytes # (auto) 1.01 K/uL (1.20-3.40); Mean Corpuscular Hemoglobin 27.2 pg (25.0-34.0); Mean Corpuscular Hgb Conc 31.8 g/dL (32.0-36.0); Mean Corpuscular Volume 85.3 fL (80.0-100.0); Mean Platelet Volume 10.9 fL (9.4-12.4); Monocytes # (auto) 0.87 K/uL (0.11-0.59); Monocytes % (auto) 11.2 %; Neutrophils # (auto) 5.51 K/uL (1.40-6.50); Neutrophils % (auto) 70.8 %; Platelet Count 205 K/uL (130-400); RDW Coefficient of Variation 14.4 % (11.5-14.5); RDW Standard Deviation 45.1 fL (36.4-46.3); Red Blood Count 4.16 M/uL (4.70-6.10); White Blood Count 7.78 K/ul (4.8-10.8)
[2024-05-08 06:47] LABS: BUN Creatinine Ratio 23.7 (10-20); Calcium 8.2 mg/dl (8.6-10.3); Creatinine Clr Calc Pharmacy 78.8 ml/min; Potassium 3.8 mmol/L (3.5-5.1)
[2024-05-08] MEDS: LOSARTAN POTASSIUM 50 MG TAB PO SCH (07:35)
[2024-05-08] MEDS: NIFEdipine EXTENDED REL 30 MG TABCR PO SCH (07:35)
[2024-05-08] MEDS: ROSUVASTATIN CALCIUM 20 MG TAB PO SCH (07:35)
[2024-05-08] MEDS: ASPIRIN 81 MG ECTAB PO SCH (07:35)
[2024-05-08] MEDS: ISOSORBIDE MONO EXTENDED REL 30 MG TABCR PO SCH (07:36)
[2024-05-08] MEDS: CLOPIDOGREL BISULFATE 75 MG TAB PO SCH (07:36)
[2024-05-08] MEDS: ESCITALOPRAM OXALATE 20 MG TAB PO SCH (07:36)
--- NOTE | 2024-05-08 08:12 | Hospitalist Progress Note ---
Date of Service May 08, 2024 Assessment & Plan (1) Human metapneumovirus (hMPV) pneumonia: Plan: Soham is a 78-year-old male with PMH of HTN, GURJIT, BPH, CAD, and cardiomyopathy. He presented for productive cough, SOB at rest, fever, and myalgias that woke him from sleep on the morning of 05/07 Acute hypoxic respiratory failure due to metapneumovirus CXR: Mild right midlung densities? Superimposed pneumonia. Cardiomegaly without evidence of pulmonary edema CTchest: GGO of the right upper lobe compatible with infection, bibasilar atelectasis, heavy coronary calcifications. D-dimer was normal, low suspicion for PE Initial leukocytosis of 11, downtrending on hospital day 1 Leukocytosis and focal findings concern is raised for superimposed pneumonia. Rocephin/Doxy is continued Sputum culture pending CAD, troponin elevation Mild troponin elevation 67, 71 and then downtrending at 64. Heavy coronary calcifications on CT. 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 Recommend cautious diuresis on a day by day basis to promote dry lung status. No JVD today. History of PCI. Aspirin, Plavix, isosorbide, nifedipine, olmesartan, rosuvastatin continue Cath 11/2023: 95% second diagonal, 95% mid OM 2 severe disease. [place] [facility] [place]2024 and Suspect patient with demand ischemia on admission, no signs of ACS. Continue to monitor GURJIT CPAP at bedtime Elevated right hemidiaphragm Significant elevation of right hemidiaphragm on evaluation of CT and x-ray. No history of shoulder injury, surgery, or phrenic nerve injury. No specific management for this, continue supportive care and treatment of underlying conditions. Will continue incentive spirometry and continue CPAP at bedtime. DVT prophylaxis: Lovenox Dispo: M/T CODE STATUS: Full code Diet: Heart healthy (2) Elevated troponin: (3) Sleep apnea: (4) Coronary artery disease: Admission and Anticipated Discharge Date Admission Date: May 07, 2024 Subjective Seen at the bedside. Notes his symptoms of breathing worsened significantly after initially improving from a respiratory virus around [place], feels a little bit better today and feels comfortable on oxygen. No chest pain chest pressure. No fevers or chills today. Pleasant, no questions or concerns. In good humor, but does appear fatigued during conversation Physical Exam Physical Exam: General: A&Ox3. NAD. Cooperative. HEENT: Atraumatic, normocephalic. Vision and hearing intact Pulm: Diffuse crackles, coarse in the bases. No overt rales. symmetrical chest rise. No increased work of breathing. No respiratory distress. Cardiac: Regular, bradycardic. Radial pulses intact and symmetrical. Results & Data Results & Data Vital Signs (Past 12 Hours) Vital Signs Temp Pulse Pulse Resp BP BP Pulse Ox 05/08/24 07:58 36.6 C 56 L 16 179/83 H 95 05/08/24 07:33 05/08/24 07:06 42 L 05/08/24 03:54 54 L 18 95 05/08/24 02:11 36.8 C 54 L 18 167/75 H 95 05/07/24 23:06 36.7 C 48 L 18 139/70 96 05/07/24 22:54 55 L 17 94 05/07/24 21:54 54 L 05/07/24 21:00 37.0 C 05/07/24 20:21 53 L O2 Del Method O2 Flow Rate 05/08/24 07:58 Nasal Cannula 3 05/08/24 07:33 Nasal Cannula, CPAP 3 05/08/24 07:06 05/08/24 03:54 3 05/08/24 02:11 CPAP 05/07/24 23:06 BiPAP 05/07/24 22:54 3 05/07/24 21:54 05/07/24 21:00 05/07/24 20:21 PG Care Time/CCT Total # of Minutes Spent Total Time Spent with Patient: Total time spent is greater than 50% in coordination of care (as documented) at patient's floor/unit and/or counseling patient: Coding Level of Care Code 29303 SUB INP/OBS CARE 2/35MIN Diagnoses Human metapneumovirus (hMPV) pneumonia J12.3 Elevated troponin R79.89 Sleep apnea G47.30 Coronary artery disease I25.10
[2024-05-08] MEDS: cefTRIAXone SODIUM 2,000 MG/50 ML BAG IV SCH (13:43)
[2024-05-09 06:36] LABS: Basophils # (auto) 0.04 K/uL (0.00-0.20); Basophils % (auto) 0.6 %; Eosinophils # (auto) 0.37 K/uL (0.00-0.50); Eosinophils % (auto) 5.7 %; Hemoglobin 11.6 g/dl (14.0-18.0); Immature Granulocytes # (auto) 0.02 K/uL (0.01-0.20); Immature Granulocytes % (auto) 0.3 %; Lymphocytes # (auto) 1.33 K/uL (1.20-3.40); Lymphocytes % (auto) 20.6 %; Mean Corpuscular Hemoglobin 27.2 pg (25.0-34.0); Mean Corpuscular Hgb Conc 32.2 g/dL (32.0-36.0); Mean Corpuscular Volume 84.3 fL (80.0-100.0); Mean Platelet Volume 10.8 fL (9.4-12.4); Monocytes # (auto) 0.74 K/uL (0.11-0.59); Monocytes % (auto) 11.4 %; Neutrophils # (auto) 3.97 K/uL (1.40-6.50); Neutrophils % (auto) 61.4 %; Platelet Count 224 K/uL (130-400); RDW Coefficient of Variation 14.2 % (11.5-14.5); RDW Standard Deviation 43.8 fL (36.4-46.3); Red Blood Count 4.27 M/uL (4.70-6.10); White Blood Count 6.47 K/ul (4.8-10.8)
[2024-05-09 06:45] LABS: Anion Gap 5 (3-11); BUN Creatinine Ratio 24.1 (10-20); Blood Urea Nitrogen 20 mg/dl (6-23); Calcium 8.2 mg/dl (8.6-10.3); Carbon Dioxide 28 mmol/L (21-32); Chloride 105 mmol/L (98-107); Glucose 99 mg/dl (70-99(Fasting)); Sodium 138 mmol/L (136-145)
[2024-05-09] MEDS: ENOXAPARIN INJ 40 MG/0.4 ML SYR SQ SCH (08:08)
[2024-05-09 11:49] VITALS: BP 156/88; RESP 12; TEMP 97.5; O2SAT 93
[2024-05-09 13:22] VITALS: PULSE 55
--- NOTE | 2024-05-09 13:24 | Discharge Summary ---
Discharge Summary Date of Service May 09, 2024 Principal Dx & Hospital Course #1 = Principal Diagnosis (1) Human metapneumovirus (hMPV) pneumonia: Soham is a 78-year-old male with PMH of HTN, GURJIT, BPH, CAD, and cardiomyopathy. He presented for productive cough, SOB at rest, fever, and myalgias that woke him from sleep on the morning of 05/07 ACT. He was found to be positive for human metapneumovirus. Soham was admitted for treatment of human metapneumovirus. There was concern based on right midlung densities for super posed bacterial pneumonia. He rapidly progressed overnight and was weaned to room air. He had a minimal leukocytosis on initial admit but without any granulocytic expansion, this immediately normalized. He was able to ambulate with good strength and without desaturations day of discharge. He does have a pill in pocket course of Augmentin available at home for superimposed pneumonia, bacterial pneumonia was not felt to be likely at time of discharge but patient will monitor for symptoms of this and start Augmentin if he experiences worsening/double sickening. He was able to ambulate 2 laps around the unit with good strength and maintain sats of 94% day of discharge. he does have a pulse ox at home and if his oxygen levels drop below 90% will seek medical reattention. During admission he had a minor troponin elevation 6070 which downtrended and was likely demand during his hypoxia. No clinical chest pain at any time. (2) Elevated troponin: (3) Sleep apnea: (4) Coronary artery disease: Admission HPI Per Admitting Provider Soham is a pleasant 78-year-old male with PMH of HTN, GURJIT, BPH, CAD, and cardiomyopathy. He presented for acute onset of cough, myalgias, and SOB on the morning of 05/07. Patient reports that his symptoms woke him from sleep around 3 AM. He reports he was having a "stuffy" chest, and kept coughing, which kept him up. He denies any chest pain, but does report discomfort with deep breaths. SOB is both at rest and with exertion. He is also had a productive cough (yellow sputum production), and reports that he recently got over a case of the flu throughout the holidays (completed course of Tamiflu). He had been feeling much better, until this morning. No hemoptysis. No prior history of DVT/PE. Patient's (Joselni) at bedside does report he had a fever of 102 F this morning. Patient took all of his regular morning medicine today. No recent change in medications. He does not use supplemental oxygen at baseline, but does report he uses a CPAP at night. Per , his home pulse oximeter read 86 to 87% on room air this morning, so they decided to come to the hospital. He denies smoking, tobacco use, or recent alcohol use. NKDA; he denies any allergies to penicillin. Patient is hypertensive at 182/73 and hypoxic at 88% on RA on admission. ED Course: Aspirin 324 mg p.o. ROS: Patient endorses fever, chills, night-sweats, lightheadedness/dizziness with standing this morning, BARONE, SOB at rest and with exertion, productive cough (yellow sputum production), and discomfort with deep breaths. Patient denies chest pain, chest palpitations, pleuritic CP, hemoptysis, ab dominal pain, N/V/D, changes in urinary/bowel habits, or numbness/tingling in the arms or legs. Discharge Exam General: A&Ox3. NAD. Cooperative. HEENT: Atraumatic, normocephalic. Vision and hearing grossly intact Pulm: Diminished, no wheezing, trace basilar crackles which clear with deep breathing. No rales symmetrical chest rise. No increased work of breathing. No respiratory distress. Cardiac: RRR, -mrg. Radial pulses intact and symmetrical. Discharge Plan Discharge Items Patient Disposition: Home - Self-Care Reason For Visit: HMPV + HYPOXIA Discharge Diagnosis: Human metapneumovirus Activity: As commented below Non-emergency contact: Primary Care Provider Call non-emergency contact if: you have any medication questions Follow-up/Referrals: Danay Ayala MD [Primary Care Provider] - Diet: Heart Healthy Addtl Attending Provider Instructions: You are seen in the hospital for hypoxia, low oxygen levels. You tested positive for a viral infection called human metapneumovirus. You were initially treated with antibiotics however you did not have a white blood cell count and the findings on your x-ray were most likely due to viral infection. You clinically improved and had normal oxygen levels on day of discharge. Viral infections do not require antibiotics, however sometimes a secondary pneumonia with a bacterial infection can occur while you are weekend/recovering. if you experience gradual improving, and then sudden worsening with fevers or productive cough this may be a sign of bacterial pneumonia for which you have been provided a pill in pocket course of antibiotics. You have a pulse ox at home, please check your oxygen levels and if they are below 90% to seek medical reattention. Follow-up appointment is being scheduled for you with your PCP Pending Studies at Discharge: No Stand-Alone Forms: My [facility], Smoking Cessation Medications and DC Order Prescriptions: Continued clopidogrel [Plavix] 75 mg tablet 75 mg PO DAILY Qty: 90 3RF isosorbide mononitrate 30 mg tablet extended release 24 hr 30 mg PO DAILY Qty: 90 3RF multivitamin Tablet 1 tab PO DAILY nitroglycerin 0.4 mg tablet, sublingual 0.4 mg sublingual Q5M PRN (Reason: Chest Pain) Rx Instructions: do not exceed 3 doses per episode nifedipine 60 mg tablet extended release 24hr 60 mg PO QAM Rx Instructions: TOTAL DOSE 90 MG--TAKES WITH 30 MG TAB. olmesartan [Benicar] 40 mg tablet 40 mg PO QAM escitalopram oxalate [Lexapro] 10 mg Tablet 20 mg PO QAM diclofenac sodium 1 % Gel 2 g TOPICAL DIRECTED PRN (Reason: Pain) omega-3 fatty acids-fish oil 684-1,200 mg Capsule,Delayed Release(Dr/Ec) 1 cap PO QAM cholecalciferol (vitamin D3) [Vitamin D3] 125 mcg (5,000 unit) Tablet 125 mcg PO QAM aspirin 81 mg capsule 81 mg PO DAILY Qty: 30 6RF rosuvastatin 20 mg tablet 20 mg PO DAILY PreserVision AREDS-2 250-90-40-1 mg Capsule 1 tab PO BID amoxicillin-pot clavulanate 875-125 mg tablet 1 tab PO BID Rx Instructions: FILLED 05/07 14 DAY SUPPLY Discharge Orders: Discharge Order (Routine); Ordered 05/09/24 Ordered By: Sascha Uriostegui Admission Data Admit Date/Time: 05/07/24 14:13 Attending Provider: Mohinder Leonard Admit Provider: Mohinder Leonard Primary Care Provider: Danay Ayala Other Providers: Mohinder Leonard Hospital Stay Data Consultations 05/07/24 13:42 ED Decision to Admit Stat Diagnostic Imagining Performed 05/07/24 15:26 CT chest diagnostic wo con Urgent Pending Results Patient Have Any Pending Studies at Discharge: No Discharge Instructions Given to Patient (Per Discharging Provider) You are seen in the hospital for hypoxia, low oxygen levels. You tested positive for a viral infection called human metapneumovirus. You were initially treated with antibiotics however you did not have a white blood cell count and the findings on your x-ray were most likely due to viral infection. You clinically improved and had normal oxygen levels on day of discharge. Viral infections do not require antibiotics, however sometimes a secondary pneumonia with a bacterial infection can occur while you are weekend/recovering. if you experience gradual improving, and then sudden worsening with fevers or productive cough this may be a sign of bacterial pneumonia for which you have been provided a pill in pocket course of antibiotics. You have a pulse ox at home, please check your oxygen levels and if they are below 90% to seek medical reattention. Follow-up appointment is being scheduled for you with your PCP Total Time Total Time Spent Total Time Spent (In Minutes): Time spend day of discharge 35 minutes including direct patient care, documentation, review of labs and images, and coordination of care. Coding Level of Care Code 53100 INP/OBS DISCH >30 MIN Diagnoses Human metapneumovirus (hMPV) pneumonia J12.3 Elevated troponin R79.89 Sleep apnea G47.30 Coronary artery disease I25.10
--- NOTE | 2024-05-09 15:40 | Electrocardiogram Report ---
Test Reason : Blood Pressure : */* mmHG Vent. Rate : 65 BPM Atrial Rate : 65 BPM P-R Int : 144 ms QRS Dur : 140 ms QT Int : 474 ms P-R-T Axes : 32 -67 -13 degrees QTcB Int : 492 ms Sinus rhythm with Premature atrial complexes Right bundle branch block Left anterior fascicular block Bifascicular block T wave abnormality, consider lateral ischemia Abnormal ECG When compared with ECG of 14-Dec-2020 17:02, Premature atrial complexes are now Present Confirmed by Jeff Coates ([id number]) on 05/09/2024 3:40:07 PM Referred By: REFERRED SELF Confirmed By: Jeff Coates
--- NOTE | 2024-05-09 15:44 | Electrocardiogram Report ---
Test Reason : Blood Pressure : */* mmHG Vent. Rate : 58 BPM Atrial Rate : 58 BPM P-R Int : 176 ms QRS Dur : 140 ms QT Int : 546 ms P-R-T Axes : -10 115 87 degrees QTcB Int : 535 ms Sinus bradycardia with sinus arrhythmia Right bundle branch block Left posterior fascicular block Bifascicular block Abnormal ECG When compared with ECG of 07-May-2024 12:01, (unconfirmed) No significant change Confirmed by Jeff Coates ([id number] on 05/09/2024 3:44:08 PM Referred By: REFERRED SELF Confirmed By: Jeff Coates
== END 2024-05-09 15:03 | disposition home or self-care (01) | DRG 193 ==
LOC: ED 11:48 → EDINP 14:13 → 2W 15:27